=== PATIENT | male | born 1960 | race Caucasian/White ===

== ENCOUNTER → 2021-05-31 | Outpatient (CLI) | payer OTHER | LOC: KOH-I 05-26 08:00 | DX: R16.1 Splenomegaly, not elsewhere classified (principal) | CPT/HCPCS: 76705 ==

== ENCOUNTER → 2021-06-02 | Outpatient (CLI) | payer OTHER | LOC: KOH-I 12:59 | DX: Z12.2 Encounter for screening for malignant neoplasm of respiratory organs (principal); M54.2 Cervicalgia; M25.531 Pain in right wrist; R20.2 Paresthesia of skin; R16.1 Splenomegaly, not elsewhere classified; M47.812 Spondylosis without myelopathy or radiculopathy, cervical region | CPT/HCPCS: 71271; 72050; 73100 ==